=== PATIENT | male | born 1975 | race Hispanic/Latino ===

== ENCOUNTER 2017-04-07 17:41 | Emergency (ER) | payer OTHER ==
[~2017-04-07] VITALS: Ht 177.8 cm; Wt 84.0 kg
[2017-04-07] MEDS ORDERED: LISINOPRIL10 MG PO (17:50)
[2017-04-07] MEDS ORDERED: MOTRIN400 MG PO (18:17)
[2017-04-07] MEDS ORDERED: ZOFRAN4 M1 PO (18:17)
[2017-04-07] MEDS ORDERED: NORCO1 TA1 PO (18:17)
[2017-04-07 18:45] VITALS: BP 136/74
== END 2017-04-07 18:45 | disposition home or self-care (01) | DRG 563 ==
LOC: ED 17:41
PROC: 2W3CX1Z Immobilization of Right Lower Arm using Splint (ICD-10-PCS; principal; 2017-04-07)
DX: S52.601A Unspecified fracture of lower end of right ulna, initial encounter for closed fracture (principal); I10 Essential (primary) hypertension; W01.0XXA Fall on same level from slipping, tripping and stumbling without subsequent striking against object, initial encounter; Y93.01 Activity, walking, marching and hiking; Y92.833 Campsite as the place of occurrence of the external cause